=== PATIENT | female | born 1995 | race Caucasian/White ===

== ENCOUNTER 2022-09-02 20:27 | Emergency (ER) | payer BC, OTHER ==
[~2022-09-02] VITALS: Ht 157.5 cm; Wt 66.7 kg
[2022-09-02 20:34] VITALS: BP 121/71
--- NOTE | 2022-09-02 20:37 | NUR ---
TO LOBBY A/W BED AMBULATORY
--- NOTE | 2022-09-02 22:10 | NUR ---
TO BED 12
[2022-09-02 22:28] LABS: BASOPHILS % (AUTO) 0.2 % (0.0-2.0); EOSINOPHILS # (AUTO) 0.1 K/uL (0-0.4); EOSINOPHILS % (AUTO) 0.5 % (0.0-4.0); HEMATOCRIT 36.2 % (36-48); HEMOGLOBIN 11.6 g/dL (12.0-16.0); LYMPHOCYTES # (AUTO) 0.4 K/uL (2.5-16.5); LYMPHOCYTES % (AUTO) 3.3 % (20.5-51.1); MEAN CORPUSCULAR HEMOGLOBIN 25 pg (27-31); MEAN CORPUSCULAR HGB CONC 32 g/dL (33-37); MEAN CORPUSCULAR VOLUME 77.2 fL (80-94); MONOCYTES # (AUTO) 0.8 K/uL (0.8-1.0); MONOCYTES % (AUTO) 6.4 % (1.7-9.3); NEUTROPHILS # (AUTO) 11.5 K/uL (1.8-7.7); NEUTROPHILS % (AUTO) 89.6 % (42.2-75.2); PLATELET COUNT (AUTO) 296 K/uL (140-450); RED BLOOD CELL COUNT(AUTO) 4.69 MIL/uL (4.20-5.40); RED CELL DISTRIBUTION WIDTH 15.3 % (11.6-13.7); WHITE BLOOD COUNT (AUTO) 12.8 K/uL (4.8-10.8)
[2022-09-02] MEDS ORDERED: ALUMINUM HYD/MAG/SIMETHICONE 30 ML UDC PO ONE (22:45)
[2022-09-02] MEDS ORDERED: ONDANSETRON 4 MG ODT PO ONE (22:45)
[2022-09-02] MEDS ORDERED: FAMOTIDINE 20 MG TAB PO ONE (22:45)
[2022-09-02] MEDS ORDERED: ACETAMINOPHEN EXTRA STRENGTH 500 MG TAB PO ONE (22:45)
[2022-09-02 22:46] LABS: ALBUMIN 4.5 g/dL (3.4-5.0); ANION GAP 14.8 (8-16); CARBON DIOXIDE 28.3 mmol/L (21-32); CREATININE 0.8 mg/dL (0.6-1.3); POTASSIUM 4.1 mmol/L (3.5-5.1); TOTAL BILIRUBIN 0.4 mg/dL (0.0-1.0)
--- NOTE | 2022-09-02 23:50 | NUR ---
Patient resting in bed, A/Ox4, chest rise and fall symmetrical, no c/o pain or s/s of distress.
[2022-09-03 01:00] LABS: APPEARANCE,URINE CLEAR (CLEAR); BILIRUBIN,URINE SMALL (NEGATIVE); BLOOD, URINE NEGATIVE (NEGATIVE); COLOR,URINE YELLOW (YELLOW); LEUKOCYTE ESTERASE ,URINE NEGATIVE (NEGATIVE); NITRITE, URINE NEGATIVE (NEGATIVE); UGLUCOSE NEGATIVE (NEGATIVE)
[2022-09-03] MEDS ORDERED: ONDA-188 PO (01:41)
[2022-09-03] MEDS ORDERED: FAMO-90 PO (01:41)
[2022-09-03] MEDS ORDERED: ACET-10509 PO (01:41)
[2022-09-03 01:46] VITALS: BP 112/85
== END 2022-09-03 01:49 | disposition home or self-care (01) ==
LOC: MED 20:27
DX: A08.4 Viral intestinal infection, unspecified (principal); D64.9 Anemia, unspecified; R11.10 Vomiting, unspecified; Z79.899 Other long term (current) drug therapy
CPT/HCPCS: 36415; 80053; 81003; 81025; 83690; 85025; 99284; Q0162

== ENCOUNTER 2024-02-16 21:38 | Emergency (ER) | payer OTHER ==
[~2024-02-16] VITALS: Ht 157.5 cm; Wt 74.8 kg
[~2024-02-16 21:38] MED LIST: ACET-10509 PO; FAMO-90 PO; ONDA-188 PO
[2024-02-16 21:42] VITALS: BP 114/72; PULSE 88; RESP 16; TEMP 97.9; O2SAT 100
[2024-02-16 23:01] VITALS: BP 116/74; PULSE 87; RESP 15; TEMP 97.9; O2SAT 100
[2024-02-16] MEDS: IBUPROFEN 600 MG TAB PO ONE (23:25)
[2024-02-17] MEDS ORDERED: NAPR-1704 PO (00:34)
== END 2024-02-17 00:54 | disposition home or self-care (01) ==
LOC: MED 21:38
DX: S63.602A Unspecified sprain of left thumb, initial encounter (principal); Z79.899 Other long term (current) drug therapy; X58.XXXA Exposure to other specified factors, initial encounter; Y92.89 Other specified places as the place of occurrence of the external cause; Y93.89 Activity, other specified; Y99.8 Other external cause status
CPT/HCPCS: 73130; 99283